=== PATIENT | female | born 1960 | race Caucasian/White ===

== ENCOUNTER 2018-11-14 06:36 | Day surgery (SDC) | payer OTHER, BC ==
[2018-11-14] MEDS ORDERED: FENTAnyl 50 MCG/ML VIAL (09:01)
[2018-11-14] MEDS ORDERED: MIDAZOLAM 1 MG/ML 2 ML INJ ×2 (09:01)
== END 2018-11-14 16:25 | disposition home or self-care (01) ==
LOC: GIL 06:36
DX: Z12.11 Encounter for screening for malignant neoplasm of colon (principal); K64.8 Other hemorrhoids; K44.9 Diaphragmatic hernia without obstruction or gangrene; K21.9 Gastro-esophageal reflux disease without esophagitis; K29.60 Other gastritis without bleeding; I10 Essential (primary) hypertension
CPT/HCPCS: 43239; 88305; 88312